=== PATIENT | female | born 1955 | race Caucasian/White ===

== ENCOUNTER → 2018-10-09 10:32 | Outpatient (CLI) | payer MEDICARE, OTHER, SELFPAY ==
--- NOTE | 2018-10-09 11:20 | BRBX_PTH ---
PATIENT: AV BARCLAY LOC: [facility] U#:[id number] AGE/SX: 70/F ROOM: RE10/09/[address]: Dr. Romina Collins MD : [id number] BED: DIS: SPEC #: [id number] RECD: 10/09/18 11:47 STATUS: DEANGELO REBri #: [id number] STACIA: 10/09/18 11:[address]: Romina Collins DEPT: SURGICAL PATHOLOGY RECD BY: Dawit Prescott ENTERED: 10/09/18 12:43 SP TYPE: BREAST BX OTHR DR: Dr. Rocky Meade III, MD Tissues: Left breast, NOS Procedures: Surgery Specimen Level IV HEADER OPERATION: Left breast stereotactic needle core biopsy PRE-OP DIAGNOSIS: Left breast microcalcifications TISSUE SUBMITTED: Left breast tissue ISCHEMIC TIME: 2 minutes FIXATION TIME: 8 hours MICROSCOPIC DIAGNOSIS Left breast, stereotactic core biopsy: Focal fat necrosis with associated microcalcifications and benign histiocytic reaction. No evidence of malignancy. AM:ladi 10/10/18 COMMENT Case has been reviewed in consultation with Dr. Johnson who concurs with the above diagnosis. IDC:CE MICROSCOPIC DESCRIPTION Slides are reviewed. GROSS DESCRIPTION Received is one container labeled with the patient's name and not further designated. The specimen consists of multiple irregular fragments of giles-yellow soft tissue that in aggregate measure 4 x 3.2 x 0.2 cm. The specimen is totally submitted in two cassettes. / AM:ladi 10/09/18 TC:5 CPT: 52139
--- NOTE | 2018-10-09 11:32 | OP.PCM_ITS ---
Report of Operation Date of Procedure: 10/09/18 Pre-Operative Diagnosis: abnormal calcifications on left breast mammograms Post-Operative Diagnosis: same Surgery/Procedure Performed:: left stereotactic breast biopsy Description of Surgical Findings:: calcifications in lower outer quadrant of left breast Type of Anesthesia:: Local - 1% xylocaine Specimen's removed: left breast tissue Estimated Blood Loss (mL): < 1 Description of Procedure: After informed consent was given, the patient was brought into the breast biopsy suite and then placed in the prone position on the stereotactic biopsy table. Appropriate time out protocol was followed. The patient?s left breast was then placed in the opening at the head of the table. A instrument maker and repairer compression mammogram was then obtained in the lateral view. The suspicious radiological lesion was then identified in the lower outer aspect of the patient's left breast. Stereo pictures of the lesion were then taken for XYZ coordinates. The Mammotome biopsy stylus was then positioned where it would be entering into the patient?s breast. The skin at this site was then cleansed with a surgical skin preparation. The skin and subcutaneous tissues at this site were then infiltrated with 1% xylocaine. A small skin incision was made with an 11 blade scalpel. The biopsy stylus was then positioned into the patient?s breast at the proper coordinates of depth. Using the Mammotome vacuum-assist device, several core samples of breast tissue were obtained. A specimen mammogram was the obtained and revealed that the calcifications were within the specimen. A hemostatic marker clip was then placed into the biopsy cavity and a instrument maker and repairer film revealed that it was properly deployed. The patient was then placed in the supine position and pressure was applied to the breast until no active bleeding was noted. Since the lesion was very superficial, a 3-0 nylon suture was placed to reapproximate the skin. A sterile opsite dressing was then applied. A unilateral mammogram in the CC and MLO view were then taken which revealed that the marker clip was in the same area as the previous suspicious lesion. The patient tolerated the procedure well and was discharged from the breast biopsy suite in good condition. - Complications none noted
== END ==
PROVIDERS: Family Provider Family Medicine; PCP Family Medicine; Referring Provider Surgery; Visit Provider Surgery
DX: R92.0 Mammographic microcalcification found on diagnostic imaging of breast (principal); E78.5 Hyperlipidemia, unspecified; E04.9 Nontoxic goiter, unspecified; Z79.899 Other long term (current) drug therapy; Z87.891 Personal history of nicotine dependence
CPT/HCPCS: 19081; 88305; J7050

== ENCOUNTER 2020-12-09 11:42 | Outpatient (RCR) | payer MEDICARE, OTHER, SELFPAY ==
[2020-12-09] MEDS: COVID-19 VACC, MRNA(PFIZER)/PF 30 MCG/0.3 ML SYRINGE IM (13:43)
[2020-12-30] MEDS: COVID-19 VACC, MRNA(PFIZER)/PF 30 MCG/0.3 ML SYRINGE IM (13:45)
== END 2021-03-10 23:59 ==
LOC: IMMUN 11:42
PROVIDERS: PCP Family Medicine; Visit Provider Family Medicine
DX: Z23 Encounter for immunization (principal)
CPT/HCPCS: 0001A; 0002A; 91300